=== PATIENT | female | born 1990 | race African-American/Black ===

== ENCOUNTER 2016-06-27 10:27 | Emergency (ER) ==
[2016-06-27] MEDS ORDERED: NS 1,000 ML IV ONE (10:53)
[2016-06-27] MEDS ORDERED: ZOFRAN IV ONE (10:54)
[2016-06-27] MEDS ORDERED: BENTYL IM ONE (10:54)
--- NOTE | 2016-06-27 11:00 | PROVIDER DOCUMENTATION ---
HPI-Abdominal Pain/GI Problem - General Chief Complaint: Abdominal Pain Stated Complaint: recheck Time Seen by Provider: 06/27/16 10:33 Allergies/Adverse Reactions: Patient Allergies Allergy/AdvReac Type Severity Reaction Status Date / Time No Known Allergies Allergy Verified 06/27/16 10:43 Home Medications: Home Medication List Medication Instructions Recorded Confirmed Last Taken Type Escitalopram [Lexapro] 10 mg PO DAILY 06/04/16 06/27/16 06/04/16 08:00 History Alprazolam [Xanax] 1 mg PO DAILY 06/27/16 06/27/16 Unknown History Ondansetron [Zofran Odt] 4 mg PO Q8H PRN PRN #7 tab.rapdis 06/27/16 Unknown Rx - History of Present Illness-ABD Nature of Presenting Problems: A 26 y/o F presented to ED with complains of right sided abdominal pain which is chronic and ongoing since few months and as per pt was referred to surgery to evaluated for cholecystectomy, pt did not see surgery yet, this time started having RUQ pain with radiation to back since yesterday, associated with nausea and mild emesis, denies fever/CP/SOB. Denies being and no vaginal bleeding Review of Systems - Adult - REVIEW OF SYSTEMS - ADULT Constitutional: reports: no symptoms reported Eyes: reports: no symptoms reported Ears, Nose, Mouth & Throat: reports: no symptoms reported Cardiovascular: reports: no symptoms reported Respiratory: reports: no symptoms reported Gastrointestinal: reports: see HPI Genitourinary: reports: no symptoms reported Musculoskeletal: reports: no symptoms reported Integumentary: reports: no symptoms reported Neurological: reports: no symptoms reported Psychiatric: reports: no symptoms reported Endocrine: reports: no symptoms reported Hematologic/Lymphatic: reports: no symptoms reported Allergic/Immunologic: reports: no symptoms reported All Other Systems: Reviewed and Negative Past History - Adult - PAST MEDICAL HISTORY-ADULT Review of Records: reports: Old Records Reviewed, Nursing Assessment Review, Medications Reviewed, Social history reviewed & non-contributory. Major Childhood Illnesses: reports: denies history Cardiovascular: reports: denies history Respiratory: reports: denies history Gastrointestinal: reports: denies history Obstetrical/Gynecological: reports: denies history Genitourinary: reports: kidney stones Musculoskeletal: reports: denies history Neurological: reports: denies history Psychiatric: reports: anxiety, depression Endocrine/Immune: reports: denies history Other Conditions: reports: denies history - PRIOR SURGERIES/PROCEDURES Surgical/Procedure History: reports: hernia repair - IMMUNIZATION STATUS Childhood Immunizations: See Nurse Assessment Flu Vaccine: See Nurse Assessment - FAMILY HISTORY Family History: reviewed, not pertinent Physical Exam-General - PHYSICAL EXAM-ADULT Initial Vital Signs Reviewed: Yes - CONSTITUTIONAL General Appearance: appears well, alert, mild distress - EYES Eyes: PERRL/EOMI, pink conjunctivae - HEAD, EARS, NOSE, MOUTH & THROAT HENMT: normocephalic/atraumatic, moist mucous membranes - NECK Neck: non-tender, full range of motion - RESPIRATORY Respiratory: chest non-tender, lungs clear, normal breath sounds, no pleuratic chest pain, no respiratory distress, no accessory muscle use - CARDIOVASCULAR Cardiovascular: normal peripheral pulses, regular rate, rhythm, no edema, no gallop, no JVD, no murmur - GASTROINTESTINAL (ABDOMEN) Abdominal Exam: normal bowel sounds, soft, tenderness (RUQ pain , questionable murphys sign as pt exhibits subjective tenderness). negative: distended, guarding - GENITOURINARY Female Genitalia/Pelvic Exam: deferred - LYMPHATIC Lymphatic: no adenopathy - MUSCULOSKELETAL Back Exam: normal inspection Extremity: normal range of motion, non-tender, normal gait, normal inspection, no pedal edema - SKIN Integumentary: normal color, normal turgor, warm/dry - NEUROLOGIC Neurologic: grades 7 8 tutor II-XII nml as tested, grossly normal, no motor/sensory deficits - PSYCHIATRIC Psych/Mental Status: normal mood/affect, normal thought content Progress - PLAN OF CARE/RESULTS Progress/Plan/Lab Results: Laboratory Tests 06/27/16 06/27/16 06/27/16 10:48 10:48 10:50 WBC RBC Hgb Hct MCV MCH MCHC RDW Std Deviation Plt Count MPV Immature Gran % (Auto) Neut % (Auto) Lymph % (Auto) [place] % (Auto) Eos % (Auto) Baso % (Auto) Immature Gran # (Auto) Neut # (Auto) Lymph # (Auto) [place] # (Auto) Eos # (Auto) Baso # (Auto) Sodium 140 Potassium 3.4 L Chloride 104 Carbon Dioxide 24 L Anion Gap 12 BUN 13 Creatinine 0.8 Estimated GFR/1.73 m2 > 60 BUN/Creatinine Ratio 16 Glucose 65 L Calculated Osmolality 278 Calcium 9.1 Total Bilirubin 0.20 AST 13 ALT 14 Alkaline Phosphatase 47 Total Protein 7.2 Albumin 4.2 Globulin 3.0 Albumin/Globulin Ratio 1.4 Amylase 77 Lipase 20 Urine Source CLEAN CATCH Urine Color YELLOW Urine Turbidity HAZY Urine pH 6.5 Ur Specific [place] 1.021 Urine Protein TRACE A Ur Glucose (Stick) NEGATIVE Ur Ketones (Stick) NEGATIVE Urine Blood NEGATIVE Urine Nitrite NEGATIVE Urine Bilirubin NEGATIVE Urobilinogen Dipstick NORMAL Urine Leukocytes NEGATIVE Urine WBC (Auto) <10 Urine RBC (Auto) <10 U Epithel Cells (Auto) >10 A Urine Bacteria (Auto) 2+ Urine Test NEGATIVE 06/27/16 10:50 WBC 4.79 L RBC 4.18 L Hgb 11.6 L Hct 35.8 L MCV 85.6 MCH 27.8 MCHC 32.4 L RDW Std Deviation 12.4 Plt Count 332 MPV 9.7 Immature Gran % (Auto) 0.0 Neut % (Auto) 34.2 L Lymph % (Auto) 57.8 H [place] % (Auto) 6.5 Eos % (Auto) 1.3 Baso % (Auto) 0.2 Immature Gran # (Auto) 0.00 Neut # (Auto) 1.64 Lymph # (Auto) 2.77 [place] # (Auto) 0.31 Eos # (Auto) 0.06 Baso # (Auto) 0.01 Sodium Potassium Chloride Carbon Dioxide Anion Gap BUN Creatinine Estimated GFR/1.73 m2 BUN/Creatinine Ratio Glucose Calculated Osmolality Calcium Total Bilirubin AST ALT Alkaline Phosphatase Total Protein Albumin Globulin Albumin/Globulin Ratio Amylase Lipase Urine Source Urine Color Urine Turbidity Urine pH Ur Specific [place] Urine Protein Ur Glucose (Stick) Ur Ketones (Stick) Urine Blood Urine Nitrite Urine Bilirubin Urobilinogen Dipstick Urine Leukocytes Urine WBC (Auto) Urine RBC (Auto) U Epithel Cells (Auto) Urine Bacteria (Auto) Urine Test Orders Category Date Time Status ED: Urine Bedside ORDERED Care 06/27/16 10:53 Inactive Saline Loc DIRECTED Care 06/27/16 10:53 Active NPO Diet 06/27/16 10:[address] ABD/PELVIS W/ IV CONT ONLY [CT] Stat Exams 06/27/16 12:10 Completed AMYLASE [CHEM] Stat Lab 06/27/16 10:50 Completed CBC WITH ELECTRONIC DIFF [HEME] Stat Lab 06/27/16 10:50 Completed COMPREHENSIVE METABOLIC PANEL [CHEM] Stat Lab 06/27/16 10:50 Completed LIPASE [CHEM] Stat Lab 06/27/16 10:50 Completed TEST-URINE [PREG] Stat Lab 06/27/16 10:48 Completed URINALYSIS W/POSS RFLX CULT [URINALYSIS] Stat Lab 06/27/16 10:48 Completed 0.9% Sodium Chloride Inj [Ns] 1,000 ml Med 06/27/16 10:53 Discontinued IV 999 mls/hr Dicyclomine [Bentyl] Med 06/27/16 10:54 Discontinued 20 mg IM NOW ONE Ondansetron [Zofran] Med 06/27/16 10:54 Discontinued 4 mg IV NOW ONE Potassium Chloride 20% Liquid Med 06/27/16 12:06 Discontinued 40 meq PO NOW ONE Vital Signs Temp Pulse Resp BP Pulse Ox 06/27/16 12:49 65 18 139/59 100 06/27/16 10:30 97.7 F 79 16 144/92 100 No Known Allergies Allergy (Verified 06/27/16 10:43) Escitalopram [Lexapro] 10 mg PO DAILY 06/04/16 Alprazolam [Xanax] 1 mg PO DAILY 06/27/16 Dietary Diet NPO Start Obdulia Mar 2 1053 I&O 06/26/16 06/27/16 06/28/16 07:59 07:59 07:59 Output Total 50 Balance -50 Laboratory 06/27/16 06/27/16 06/27/16 10:50 10:50 10:48 WBC 4.79 L RBC 4.18 L Hgb 11.6 L Hct 35.8 L MCV 85.6 MCH 27.8 MCHC 32.4 L RDW Std Deviation 12.4 Plt Count 332 MPV 9.7 Immature Gran % (Auto) 0.0 Neut % (Auto) 34.2 L Lymph % (Auto) 57.8 H [place] % (Auto) 6.5 Eos % (Auto) 1.3 Baso % (Auto) 0.2 Immature Gran # (Auto) 0.00 Neut # (Auto) 1.64 Lymph # (Auto) 2.77 [place] # (Auto) 0.31 Eos # (Auto) 0.06 Baso # (Auto) 0.01 Sodium 140 Potassium 3.4 L Chloride 104 Carbon Dioxide 24 L Anion Gap 12 BUN 13 Creatinine 0.8 Estimated GFR/1.73 m2 > 60 BUN/Creatinine Ratio 16 Glucose 65 L Calculated Osmolality 278 Calcium 9.1 Total Bilirubin 0.20 AST 13 ALT 14 Alkaline Phosphatase 47 Total Protein 7.2 Albumin 4.2 Globulin 3.0 Albumin/Globulin Ratio 1.4 Amylase 77 Lipase 20 Urine Source Urine Color Urine Turbidity Urine pH Ur Specific [place] Urine Protein Ur Glucose (Stick) Ur Ketones (Stick) Urine Blood Urine Nitrite Urine Bilirubin Urobilinogen Dipstick Urine Leukocytes Urine WBC (Auto) Urine RBC (Auto) U Epithel Cells (Auto) Urine Bacteria (Auto) Urine Test NEGATIVE 06/27/16 10:48 WBC RBC Hgb Hct MCV MCH MCHC RDW Std Deviation Plt Count MPV Immature Gran % (Auto) Neut % (Auto) Lymph % (Auto) [place] % (Auto) Eos % (Auto) Baso % (Auto) Immature Gran # (Auto) Neut # (Auto) Lymph # (Auto) [place] # (Auto) Eos # (Auto) Baso # (Auto) Sodium Potassium Chloride Carbon Dioxide Anion Gap BUN Creatinine Estimated GFR/1.73 m2 BUN/Creatinine Ratio Glucose Calculated Osmolality Calcium Total Bilirubin AST ALT Alkaline Phosphatase Total Protein Albumin Globulin Albumin/Globulin Ratio Amylase Lipase Urine Source CLEAN CATCH Urine Color YELLOW Urine Turbidity HAZY Urine pH 6.5 Ur Specific [place] 1.021 Urine Protein TRACE A Ur Glucose (Stick) NEGATIVE Ur Ketones (Stick) NEGATIVE Urine Blood NEGATIVE Urine Nitrite NEGATIVE Urine Bilirubin NEGATIVE Urobilinogen Dipstick NORMAL Urine Leukocytes NEGATIVE Urine WBC (Auto) <10 Urine RBC (Auto) <10 U Epithel Cells (Auto) >10 A Urine Bacteria (Auto) 2+ Urine Test - CT/MRI 1 CT Study: Abdomen Impression: See EMR Report (constipation no acute pathology) Departure - Departure Time of Disposition Order: 13:03 DIAGNOSIS: Hypokalemia, Nausea Constipation Qualifiers: Constipation type: unspecified constipation type Qualified Code(s): K59.00 - Constipation, unspecified Abdominal pain Qualifiers: Abdominal location: generalized Qualified Code(s): R10.84 - Generalized abdominal pain Disposition: HOME 01 Certified Medical Emergency: Emergent Condition: Good Prescriptions: Ondansetron [Zofran Odt] 4 mg PO Q8H PRN PRN #7 tab.rapdis PRN Reason: Vomiting Referrals: Deandre Monique MD [Primary Care Provider] - - Critical Care Note Comments: pt improved after IV fluids and zofran and bentyl, labs normal potassium replaced, pt needs to follow up with PCP
[2016-06-27 11:05] LABS: URINE MICRO REVIEW NEEDED? NO; URINE SOURCE CLEAN CATCH
[2016-06-27 11:05] LABS: MANUAL DIFF NEEDED? NO
[2016-06-27 11:10] LABS: BASO% 0.2 % (0.0-0.8); EOS# 0.06 X1000 (0.0-0.7); EOS% 1.3 % (0.0-10.0); HEMATOCRIT 35.8 % (37.0-47.0); HEMOGLOBIN 11.6 g/dL (12.0-16.0); LYMPH# 2.77 X1000 (1.2-3.4); LYMPH% 57.8 % (20.5-51.1); MCH 27.8 PG (27-31); MCHC 32.4 g/dL (33-37); MCV 85.6 FL (81-99); MONO# 0.31 X1000 (0.11-0.59); MONO% 6.5 % (1.7-9.3); MPV 9.7 FL (7.4-10.4); NEUT% 34.2 % (42.2-75.2); PLT 332 X1000 (130-400); RBC 4.18 XMIL (4.2-5.4)
[2016-06-27 11:11] LABS: BILIRUBIN URINE NEGATIVE (NEGATIVE); BLOOD URINE NEGATIVE (NEGATIVE); COLOR YELLOW; GLUCOSE URINE NEGATIVE (NEGATIVE); LEUKOCYTES URINE NEGATIVE (NEGATIVE); NITRITE URINE NEGATIVE (NEGATIVE); PH URINE 6.5; PROTEIN URINE TRACE mg/dL (NEGATIVE); SP GRAVITY URINE 1.021; TURBIDITY URINE HAZY (CLEAR); UROBILINOGEN URINE NORMAL (NORMAL)
[2016-06-27 11:13] LABS: UR EPITHELIAL CELLS >10 /HPF (<10); URINE BACTERIA 2+ /HPF; URINE CULTURE NEEDED? YES; URINE RBC <10 /HPF (<10); URINE WBC <10 /HPF (<10)
[2016-06-27 11:46] LABS: AGAP 12; ALBUMIN 4.2 g/dL (3.5-5.0); ALKALINE PHOSPHATASE 47 U/L (32-104); AMYLASE 77 U/L (20-200); BUN 13 mg/dL (8-22); CALCIUM 9.1 mg/dL (8.8-10.2); CHLORIDE 104 mmol/L (98-107); COSMO 278; GOT 13 U/L (10-30); GPT 14 U/L (10-36); LIPASE 20 U/L (13-60); POTASSIUM 3.4 mmol/L (3.5-5.1); SODIUM 140 mmol/L (136-145); TCO2 24 mmol/L (25-35); TOTAL PROTEIN 7.2 g/dL (6.3-8.3)
[2016-06-27] MEDS ORDERED: POTASSIUM CHLORIDE 20% LIQUID PO ONE (12:06)
[2016-06-27 12:49] VITALS: BP 139/59
--- NOTE | 2016-06-27 13:08 | Diag Imaging Result Document ---
PROCEDURE NAME: CT ABD/PELVIS W/ IV CONT ONLY - 06/27/2016 CT OF THE ABDOMEN WITH INTRAVENOUS CONTRAST: FINDINGS: There are multiple small cysts in the right kidney. Maybe some tiny cortical cysts on the left as well. The liver is normal in appearance. There are no gallstones. The spleen is not enlarged. The adrenal glands are within normal limits and the pancreas is unremarkable. There is a fairly large amount of stool throughout the colon. The appendix is normal in appearance. CT OF THE PELVIS WITH INTRAVENOUS CONTRAST: FINDINGS: There is formed stool in the rectosigmoid colon. There is what appears to be a 1.9 cm cyst in the ovary on the right. There is a tiny amount of free fluid in the cul de sac. IMPRESSION: Constipation and small right ovarian cyst.
== END 2016-06-27 13:19 | disposition home or self-care (01) ==
LOC: ED 10:27
DX: K59.00 Constipation, unspecified (principal); E87.6 Hypokalemia; R11.0 Nausea; R10.84 Generalized abdominal pain; R10.11 Right upper quadrant pain; Z87.442 Personal history of urinary calculi; F41.9 Anxiety disorder, unspecified; F32.9 Major depressive disorder, single episode, unspecified; Z79.899 Other long term (current) drug therapy
CPT/HCPCS: 74177; 80053; 81001; 81025; 82150; 83690; 85025; 87088; J0500; J2405; J7030; Q9967

== ENCOUNTER 2018-08-19 12:41 | Inpatient (IN) ==
[2018-08-19 13:53] LABS: URINE SOURCE VOIDED
[2018-08-19 14:04] LABS: BILIRUBIN URINE NEGATIVE (NEGATIVE); BLOOD URINE NEGATIVE (NEGATIVE); CLARITY CLEAR (CLEAR); COLOR YELLOW; GLUCOSE URINE NEGATIVE (NEGATIVE); KETONE URINE NEGATIVE (NEGATIVE); LEUKOCYTES URINE TRACE (NEGATIVE); NITRITE URINE NEGATIVE (NEGATIVE); PROTEIN URINE TRACE mg/dL (NEGATIVE); UROBILINOGEN URINE NORMAL
[2018-08-19 14:24] LABS: UR AMPHETAMINES QUAL NONE DETECTED (NONE DETECT); UR BARBITUATES QUAL NONE DETECTED (NONE DETECT); UR BENZODIAZEPIN QUAL NONE DETECTED (NONE DETECT); UR CANNABINOIDS QUAL NONE DETECTED (NONE DETECT); UR COCAINE QUAL NONE DETECTED (NONE DETECT); UR METHADONE QUAL NONE DETECTED (NONE DETECT); UR METHAMPHETAMINE QUAL NONE DETECTED (NONE DETECT); UR OPIATES QUAL PRESUMPTIVE POSITIVE (NONE DETECT); UR OXYCODONE QUAL NONE DETECTED (NONE DETECT); UR PCP QUAL NONE DETECTED (NONE DETECT); UR PROPOXYPHENE QUAL NONE DETECTED (NONE DETECT); UR TCA QUAL NONE DETECTED (NONE DETECT)
[2018-08-19] MEDS ORDERED: TYLENOL PO PRN (16:12)
[2018-08-19] MEDS ORDERED: REGLAN PO ONE (16:12)
[2018-08-19] MEDS ORDERED: AMPICILLIN 2 GM/NS 2 GM/100 ML IVPB IV ONE (16:12)
[2018-08-19] MEDS ORDERED: KEFZOL 1 GM/D5W 1 GM/50 ML IVPB IV PRN (16:12)
[2018-08-19] MEDS ORDERED: ZOFRAN IV PRN (16:12)
[2018-08-19] MEDS ORDERED: STADOL IV PRN (16:12)
[2018-08-19] MEDS ORDERED: PEPCID IV PRN (16:12)
[2018-08-19] MEDS ORDERED: PEPCID PO PRN (16:12)
[2018-08-19] MEDS ORDERED: PEPCID PO ONE (16:12)
[2018-08-19] MEDS ORDERED: PITOCIN 30 UNITS/NS 30 UNIT/500 ML IV.SOLN IV SCH (16:15)
[2018-08-19] MEDS ORDERED: SODIUM CHLORIDE 0.9% INJ SCH (16:15)
[2018-08-19] MEDS: LR 1,000 ML IV SCH ×2 (16:45→17:45)
[2018-08-19 17:28] LABS: BASO# 0.01 X1000 (0.0-0.2); BASO% 0.1 % (0.0-0.8); EOS# 0.06 X1000 (0.0-0.7); EOS% 0.6 % (0.0-10.0); HEMATOCRIT 29.8 % (37.0-47.0); HEMOGLOBIN 9.6 g/dL (12.0-16.0); IMM GRAN# 0.05 X1000 (0.0-0.04); IMM GRAN% 0.5 % (0.0-0.5); LYMPH% 26.3 % (20.5-51.1); MCH 28.2 PG (27-31); MCHC 32.2 g/dL (33-37); MCV 87.4 FL (81-99); MONO# 0.69 X1000 (0.11-0.59); MONO% 7.3 % (1.7-9.3); MPV 11.8 FL (7.4-10.4); NEUT# 6.18 X1000 (1.4-6.5); NEUT% 65.2 % (42.2-75.2); PLT 241 X1000 (130-400); RBC 3.41 XMIL (4.2-5.4); RDW 12.8 % (11.5-14.5); WBC 9.49 X1000 (4.8-10.8)
[2018-08-19] MEDS ORDERED: NAROPIN 0.2% INJ ONE (17:30)
[2018-08-19] MEDS ORDERED: FENTANYL-BUPIV-NS 2 MCG-0.1% 200 ML EPIDURAL SCH (18:00)
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
[2018-08-19] MEDS ORDERED: XYLOCAINE-MPF 1% INJ ONE (19:35)
[2018-08-19] MEDS ORDERED: MINERAL OIL TOP ONE (19:36)
[2018-08-19] MEDS ORDERED: AMPICILLIN 1 GM/NS 1 GM/50 ML IVPB IV SCH (20:14)
--- NOTE | 2018-08-20 01:26 | OB/GYN PROGRESS NOTE ---
Progress Note OB - . OB Progress Note: Vital Signs - 24 hr 08/19/18 13:05 08/19/18 19:20 Temperature 97.8 F 97.1 F L Pulse Rate 116 H 73 Respiratory Rate 20 16 Blood Pressure 135/84 130/68 O2 Sat by Pulse Oximetry 98 100 Laboratory Results - last 24 hr 08/19/18 08/19/18 08/19/18 13:30 13:30 16:45 WBC RBC Hgb Hct MCV MCH MCHC RDW Std Deviation Plt Count MPV Immature Gran % (Auto) Neut % (Auto) Lymph % (Auto) [place] % (Auto) Eos % (Auto) Baso % (Auto) Immature Gran # (Auto) Neut # (Auto) Lymph # (Auto) [place] # (Auto) Eos # (Auto) Baso # (Auto) Urine Source VOIDED Urine Color YELLOW Urine Clarity CLEAR Urine pH 7.0 Ur Specific [place] 1.000 Urine Protein TRACE A Urine Ketones NEGATIVE Urine Blood NEGATIVE Urine Nitrite NEGATIVE Urine Bilirubin NEGATIVE Urine Urobilinogen NORMAL Urine WBC TRACE A Urine Glucose NEGATIVE Urine Opiates Screen PRESUMPTIVE POSITIVE A Ur Oxycodone Screen NONE DETECTED Urine Methadone Screen NONE DETECTED U Propoxyphene Qual NONE DETECTED Ur Barbituates Screen NONE DETECTED Ur Tricyclics Screen NONE DETECTED Ur Phencyclidine Scrn NONE DETECTED Ur Amphetamines Screen NONE DETECTED U Methamphetamines Scrn NONE DETECTED U Benzodiazepines Scrn NONE DETECTED Urine Cocaine Screen NONE DETECTED U Cannabinoids Screen NONE DETECTED RPR NON-REACTIVE Rubella Immunity Screen 08/19/18 08/19/18 16:45 20:00 WBC 9.49 RBC 3.41 L Hgb 9.6 L Hct 29.8 L MCV 87.4 MCH 28.2 MCHC 32.2 L RDW Std Deviation 12.8 Plt Count 241 MPV 11.8 H Immature Gran % (Auto) 0.5 Neut % (Auto) 65.2 Lymph % (Auto) 26.3 [place] % (Auto) 7.3 Eos % (Auto) 0.6 Baso % (Auto) 0.1 Immature Gran # (Auto) 0.05 H Neut # (Auto) 6.18 Lymph # (Auto) 2.50 [place] # (Auto) 0.69 H Eos # (Auto) 0.06 Baso # (Auto) 0.01 Urine Source Urine Color Urine Clarity Urine pH Ur Specific [place] Urine Protein Urine Ketones Urine Blood Urine Nitrite Urine Bilirubin Urine Urobilinogen Urine WBC Urine Glucose Urine Opiates Screen Ur Oxycodone Screen Urine Methadone Screen U Propoxyphene Qual Ur Barbituates Screen Ur Tricyclics Screen Ur Phencyclidine Scrn Ur Amphetamines Screen U Methamphetamines Scrn U Benzodiazepines Scrn Urine Cocaine Screen U Cannabinoids Screen RPR Rubella Immunity Screen IMMUNE 28yo G6, P4, 4-0-1-4, at 40w0d in active labor Pain is well-controlled s/p epidural. 0110 Cervix: 6/80/-2-->AROM-->6/80/-2 FHT: Baseline 120s, moderate variability, +accelerations, no decelerations TOCO: Irregular q3-8min Pit 6 Assessment: 28yo G6, P4, 4-0-1-4, at 40w0d in active labor, Category I FHT Plan: - Anticipate vaginal delivery - If no cervical change at next check, will place [facility] - S/p epidural
[2018-08-20] MEDS ORDERED: M-M-R II VACCINE SUBQ ONE (04:41)
[2018-08-20] MEDS ORDERED: CYTOTEC PO PRN (04:41)
[2018-08-20] MEDS ORDERED: PITOCIN IM PRN (04:41)
[2018-08-20] MEDS ORDERED: MINERAL OIL PO PRN (04:41)
[2018-08-20] MEDS ORDERED: BOOSTRIX VACCINE IM ONE (04:41)
[2018-08-20] MEDS ORDERED: ATARAX PO PRN (04:41)
[2018-08-20] MEDS ORDERED: XYLOCAINE-MPF 1% INJ PRN (04:41)
[2018-08-20] MEDS ORDERED: PERI MEDS (DERMOPLAST/NUPERCAINAL/TUCKS) MISC PRN (04:41)
[2018-08-20] MEDS ORDERED: PITOCIN 30 UNITS/NS 30 UNIT/500 ML IV.SOLN IV SCH (04:45)
[2018-08-20] MEDS ORDERED: PITOCIN 20 UNITS/NS 20 UNITS/1,000 ML IV.SOLN IV SCH (04:45)
--- NOTE | 2018-08-20 05:51 | OPERATIVE NOTE ---
PROCEDURE DATE: 08/20/2018 PREOPERATIVE DIAGNOSES: 1. A 40-week, 0-day, intrauterine in active labor. 2. History of depression, history of chronic opioid use. POSTOPERATIVE DIAGNOSES: 1. A 40-week, 0-day, intrauterine in active labor. 2. History of depression, history of chronic opioid use. 3. Delivery of a viable male weighing 7 pounds 12 ounces, with Apgars of 9 at 1 minute and 9 at 5 minutes. PROCEDURE: Spontaneous vaginal delivery. SURGEON: Mackenzie Veras MD. ANESTHESIA: Epidural. EBL: 250 mL. PROCEDURE IN DETAIL: The patient was noted to be complete, so she was placed in the dorsal lithotomy position, prepped and draped in the usual sterile manner for a vaginal delivery. The patient was noted to have epidural anesthesia. The patient was asked to push and the head delivered spontaneously in the left occiput anterior position over an intact perineum. Nuchal cord was checked and none noted. Anterior shoulder delivered easily and the posterior shoulder followed. The remainder of the was easily delivered. The was noted to have a spontaneous cry and spontaneous movement of all 4 extremities. The was immediately placed on mother's abdomen where it was warmed and dried. The was suctioned while on its mother's abdomen. The cord was clamped x2 after delayed cord clamping and cut, noted to have 2 arteries and 1 vein. Cord blood was obtained. The placenta delivered intact spontaneously and the uterus was explored. There were no products of conception found in the uterus and all blood clots were cleared. 20 units of Pitocin was placed in the IV bag to firm the uterus. Examination of the cervix and the vaginal vault did not reveal any lacerations. Examination of the perineum showed no lacerations. A true knot in the cord was noted. The patient tolerated the procedure well and recovered in L and D. The nursery nurse noted the to be trembling so the was taken to the nursery to be evaluated for hypoglycemia. Once there normal glucose levels were found, it was determined that the trembling was likely secondary to chronic opioid use. All sponge counts were correct. cc: Mackenzie Veras MD [facility]
[2018-08-20] MEDS: MOTRIN PO PRN ×2 (07:24→15:49)
[2018-08-20] MEDS: NORCO-5 PO PRN ×4 (07:24→20:40)
[2018-08-20] MEDS: ZOLOFT PO SCH (17:40)
[2018-08-20] MEDS: AMBIEN PO PRN (20:40)
[2018-08-20] MEDS: PERICOLACE PO SCH (20:40)
[2018-08-21] MEDS: NORCO-5 PO PRN ×3 (07:31→23:33)
[2018-08-21] MEDS: MOTRIN PO PRN ×2 (07:32→16:59)
[2018-08-21] MEDS: FERROUS SULFATE PO SCH (09:18)
[2018-08-21] MEDS: ZOLOFT PO SCH (09:18)
[2018-08-21 11:05] LABS: BASO# 0.01 X1000 (0.0-0.2); BASO% 0.1 % (0.0-0.8); EOS# 0.04 X1000 (0.0-0.7); EOS% 0.5 % (0.0-10.0); HEMATOCRIT 29.6 % (37.0-47.0); HEMOGLOBIN 9.5 g/dL (12.0-16.0); IMM GRAN# 0.04 X1000 (0.0-0.04); IMM GRAN% 0.5 % (0.0-0.5); LYMPH# 2.06 X1000 (1.2-3.4); LYMPH% 23.4 % (20.5-51.1); MCH 27.9 PG (27-31); MCHC 32.1 g/dL (33-37); MCV 86.8 FL (81-99); MONO# 0.74 X1000 (0.11-0.59); MONO% 8.4 % (1.7-9.3); MPV 11.3 FL (7.4-10.4); NEUT# 5.92 X1000 (1.4-6.5); NEUT% 67.1 % (42.2-75.2); PLT 232 X1000 (130-400); RBC 3.41 XMIL (4.2-5.4); RDW 12.8 % (11.5-14.5); WBC 8.81 X1000 (4.8-10.8)
[2018-08-21] MEDS: PERICOLACE PO SCH (22:09)
[2018-08-21] MEDS: AMBIEN PO PRN (23:33)
[2018-08-22] MEDS: NORCO-5 PO PRN ×2 (06:24→09:54)
--- NOTE | 2018-08-22 06:57 | OB/GYN PROGRESS NOTE ---
Progress Note OB - . OB Progress Note: Vital Signs - 24 hr 08/21/18 07:30 08/21/18 11:43 08/21/18 16:00 Temperature 98.3 F 97.9 F 98.3 F Pulse Rate 60 62 57 L Respiratory Rate 20 20 20 Blood Pressure 153/96 103/61 117/76 O2 Sat by Pulse Oximetry 100 100 100 08/21/18 22:00 Temperature 97.6 F Pulse Rate 69 Respiratory Rate 18 Blood Pressure 126/77 O2 Sat by Pulse Oximetry 100 Laboratory Results - last 24 hr 08/19/18 08/21/18 20:00 10:35 WBC 8.81 RBC 3.41 L Hgb 9.5 L Hct 29.6 L MCV 86.8 MCH 27.9 MCHC 32.1 L RDW Std Deviation 12.8 Plt Count 232 MPV 11.3 H Immature Gran % (Auto) 0.5 Neut % (Auto) 67.1 Lymph % (Auto) 23.4 [place] % (Auto) 8.4 Eos % (Auto) 0.5 Baso % (Auto) 0.1 Immature Gran # (Auto) 0.04 Neut # (Auto) 5.92 Lymph # (Auto) 2.06 [place] # (Auto) 0.74 H Eos # (Auto) 0.04 Baso # (Auto) 0.01 Hep Bs Antibody SEE COMMENTS No complaints, denies PIH/orthostatic symptoms, ambulating without difficulty, normal bowel and bladder function A&O NAD CTAB RRR S/ND/NT/Fundus firm Normal lochia No C/C/E PPD 2 s/p doing well - D/C home - Follow up Dr. Johnson 6 wks or prn.
[2018-08-22] MEDS ORDERED: DEPO-PROVERA IM ONE (07:27)
[2018-08-22 08:40] VITALS: BP 114/74
[2018-08-22] MEDS: FERROUS SULFATE PO SCH (09:48)
[2018-08-22] MEDS: ZOLOFT PO SCH (09:48)
[2018-08-22] MEDS: MOTRIN PO PRN (09:54)
== END 2018-08-22 15:30 | disposition home or self-care (01) | DRG 806 ==
LOC: P.OPLD 12:41 → P.LD 12:45
PROVIDERS: ADMIT Student in an Organized Health Care Education/Training Program; ATTEND Student in an Organized Health Care Education/Training Program
CPT/HCPCS: 80104; 80301; 80305; 81003; 85025; 86592; 86706; 86762; A9270; G0431; G0434; G0477; J0150; J0290; J0595; J1050; J1055; J2590; J2795; J7120